=== PATIENT | female | born 1960 | race Caucasian/White ===

== ENCOUNTER 2016-11-02 11:40 | Emergency (ER) | payer BC ==
--- NOTE | 2016-11-02 12:02 | ER Document Report ---
ED Medical Screen (RME) - General Chief Complaint: Rib Pain Stated Complaint: LEFT RIB, SIDE AND BACK PAIN Time Seen by Provider: 11/02/16 12:00 Mode of Arrival: Ambulatory Information source: Patient TRAVEL OUTSIDE OF THE [place] IN LAST 30 DAYS: No - HPI Patient complains to provider of: L rib pain Onset: Other - pt. with h/o L rib fx earlier this year with recurrent pain in same area. Denies new trauma. Continues to smoke - Related Data Allergies/Adverse Reactions: cyclobenzaprine HCl [From Flexeril] Allergy (Unknown, Verified 11/02/16 11:59) Past Medical History - Social History Frequency of alcohol use: daily Drug Abuse: None Pulmonary Medical History: 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 Renal/ Medical History: Denies: Hx Peritoneal Dialysis GI Medical History: Reports: Hx Diverticulitis, Hx Irritable Bowel Traumatic Medical History: Reports: Hx Fractures - With Past Surgical History: Reports: Hx Appendectomy, Hx Breast Surgery - augmentation, Hx Section - x1, Hx Gynecologic Surgery - ovarian cyst, Hx Hysterectomy, Hx Nose Surgery, Hx Orthopedic Surgery - back, left knee, - Immunizations Hx Diphtheria, Pertussis, Tetanus Vaccination: - unknown Physical Exam - Vital signs Vitals: Temp Pulse Resp BP Pulse Ox 98.4 F 97 18 166/81 H 96 11/02/16 11:45 11/02/16 11:45 11/02/16 11:45 11/02/16 11:45 11/02/16 11:45 Course - Vital Signs Vital signs: Temp Pulse Resp BP Pulse Ox 98.4 F 97 18 166/81 H 96 11/02/16 11:45 11/02/16 11:45 11/02/16 11:45 11/02/16 11:45 11/02/16 11:45
--- NOTE | 2016-11-02 12:25 | RADIOLOGY REPORT (SQ) ---
EXAM DESCRIPTION: RIBS LEFT W/PA CHEST COMPLETED DATE/TIME: 11/02/2016 12:17 pm REASON FOR STUDY: L rib pain COMPARISON: None. TECHNIQUE: Frontal view of the chest and additional views of the left ribs acquired. NUMBER OF VIEWS: Three view. LIMITATIONS: None. FINDINGS: FRONTAL CXR: There is minimal linear atelectasis or scarring in the lung bases. No pneumo thorax or pleural effusion. Small nodular density overlying the left base is consistent with nipple shadow. RIBS: No displaced rib fractures. No lytic or blastic bony lesions. OTHER: No other significant finding. IMPRESSION: NO PNEUMOTHORAX. NO DISPLACED RIB FRACTURES. COMMENT: SITE OF TRAUMA/COMPLAINT MARKED/STAMP COMPLETED: NO. TECHNICAL DOCUMENTATION: JOB ID: [id number] [employer]- All Rights Reserved
[2016-11-02 12:32] LABS: ABSOLUTE BASOPHILS # (AUTO) 0.1 10^3/uL (0.0-0.2); ABSOLUTE EOSINOPHILS # (AUTO) 0.1 10^3/uL (0.0-0.6); ABSOLUTE LYMPHOCYTES (AUTO) 3.3 10^3/uL (0.5-4.7); ABSOLUTE MONOCYTES (AUTO) 0.8 10^3/uL (0.1-1.4); ABSOLUTE NEUT (AUTO) 9.4 10^3/uL (1.7-8.2); BASOPHILS % (AUTO) 0.9 % (0-2); HEMATOCRIT 45.5 % (36.0-47.0); HEMOGLOBIN 14.7 g/dL (12.0-15.5); HGB HCT DIFFERENCE -1.4; LYMPHOCYTES % (AUTO) 23.9 % (13-45); MEAN CORPUSCULAR HGB CONC 32.4 g/dL (32.0-36.0); MEAN CORPUSCULAR VOLUME 90 fl (80-97); MONOCYTES % (AUTO) 5.5 % (3-13); RED BLOOD COUNT 5.07 10^6/uL (3.72-5.28); RED CELL DISTRIBUTION WIDTH 13.7 % (11.5-14.0); SEGMENTED NEUTROPHILS % (AUTO) 68.7 % (42-78); WHITE BLOOD COUNT 13.7 10^3/uL (4.0-10.5)
[2016-11-02 12:49] LABS: ALANINE AMINOTRANSFERASE 24 U/L (9-52); ALBUMIN 4.6 g/dL (3.5-5.0); ALKALINE PHOSPHATASE 109 U/L (38-126); ANION GAP 11 (5-19); ASPARTATE AMINO TRANSFERASE 22 U/L (14-36); BILIRUBIN,DIRECT 0.3 mg/dL (0.0-0.4); BILIRUBIN,TOTAL 0.5 mg/dL (0.2-1.3); BLOOD UREA NITROGEN 11 mg/dL (7-20); CALCIUM 9.8 mg/dL (8.4-10.2); CARBON DIOXIDE 25 mmol/L (22-30); CHLORIDE 106 mmol/L (98-107); CREATINE KINASE 113 U/L (30-135); CREATININE RESULT 0.61 mg/dL (0.52-1.25); GLUCOSE 96 mg/dL (75-110); POTASSIUM 4.7 mmol/L (3.6-5.0); SODIUM 142.4 mmol/L (137-145)
[2016-11-02 13:01] LABS: CREATINE KINASE MB 0.72 ng/mL (<4.55); TROPONIN I < 0.012 ng/mL
[2016-11-02] MEDS ORDERED: LIDOCAINE 5% (700 MG) TRANSDERMAL ADH..PATCH TP ONE (13:45)
--- NOTE | 2016-11-02 13:46 | ER Document Report ---
ED General - General Chief Complaint: Rib Pain Stated Complaint: LEFT RIB, SIDE AND BACK PAIN Time Seen by Provider: 11/02/16 12:00 Mode of Arrival: Ambulatory TRAVEL OUTSIDE OF THE [place] IN LAST 30 DAYS: No - HPI Patient complains to provider of: Left lateral chest wall pain Notes: Patient coming in for evaluation of lateral chest wall pain ongoing for the last 2 weeks. Patient denies any trauma denies any fever chills nausea vomiting patient has pinpoint pain patient states pain is worse with movement. Denies any cardiac history denies any history of blood clots. Patient is resting comfortably upon my evaluation eating peanut butter and crackers. - Related Data Allergies/Adverse Reactions: cyclobenzaprine HCl [From Flexeril] Allergy (Unknown, Verified 11/02/16 11:59) Past Medical History - General Information source: Patient - Social History Smoking Status: Current Every Day Smoker Frequency of alcohol use: daily Drug Abuse: None Family History: Reviewed & Not Pertinent Patient has suicidal ideation: No Patient has homicidal ideation: No Pulmonary Medical History: 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 Renal/ Medical History: Denies: Hx Peritoneal Dialysis GI Medical History: Reports: Hx Diverticulitis, Hx Irritable Bowel Traumatic Medical History: Reports: Hx Fractures - With Past Surgical History: Reports: Hx Appendectomy, Hx Breast Surgery - augmentation, Hx Section - x1, Hx Gynecologic Surgery - ovarian cyst, Hx Hysterectomy, Hx Nose Surgery, Hx Orthopedic Surgery - back, left knee, - Immunizations Hx Diphtheria, Pertussis, Tetanus Vaccination: - unknown Review of Systems - Review of Systems Constitutional: No symptoms reported EENT: No symptoms reported Cardiovascular: Chest pain - Left lateral chest wall Respiratory: No symptoms reported Gastrointestinal: No symptoms reported Genitourinary: No symptoms reported Female Genitourinary: No symptoms reported Musculoskeletal: No symptoms reported Skin: No symptoms reported Hematologic/Lymphatic: No symptoms reported Neurological/Psychological: No symptoms reported Physical Exam - Vital signs Vitals: Temp Pulse Resp BP Pulse Ox 98.4 F 97 18 166/81 H 96 11/02/16 11:45 11/02/16 11:45 11/02/16 11:45 11/02/16 11:45 11/02/16 11:45 Interpretation: Normal - General General appearance: Appears well, Alert - HEENT Head: Normocephalic, Atraumatic Eyes: Normal Pupils: PERRL - Respiratory Respiratory status: No respiratory distress Chest status: Tender - Left lateral chest wall pain reproducible to palpation Breath sounds: Normal Chest palpation: Normal - Cardiovascular Rhythm: Regular Heart sounds: Normal auscultation Murmur: No - Abdominal Inspection: Normal Distension: No distension Bowel sounds: Normal Tenderness: Nontender Organomegaly: No organomegaly - Back Back: Normal, Nontender - Extremities General upper extremity: Normal inspection, Nontender, Normal color, Normal ROM , Normal temperature General lower extremity: Normal inspection, Nontender, Normal color, Normal ROM , Normal temperature, Normal weight bearing. No: Mauro's sign - Neurological Neuro grossly intact: Yes Cognition: Normal Orientation: AAOx4 [place] Coma Scale Eye Opening: Spontaneous Jacqui Coma Scale Verbal: Oriented [place] Coma Scale Motor: Obeys Commands [place] Coma Scale Total: 15 Speech: Normal Motor strength normal: LUE, RUE, LLE, RLE Sensory: Normal - Psychological Associated symptoms: Normal affect, Normal mood - Skin Skin Temperature: Warm Skin Moisture: Dry Skin Color: Normal Course - Re-evaluation Re-evalutation: 11/02/16 14:55 The patient has atypical chest pain as the patient's chest pain is not suggestive of pulmonary embolus, cardiac ischemia, aortic dissection, or other serious etiology. Given the extremely low risk of these diagnoses further testing and evaluation for these possibilities does not appear to be indicated at this time. The patient has been instructed to return if the symptoms worsen or change in any way. - Vital Signs Vital signs: Temp Pulse Resp BP Pulse Ox 98.0 F 92 17 148/82 H 98 11/02/16 13:57 11/02/16 13:57 11/02/16 13:57 11/02/16 13:57 11/02/16 13:57 - Laboratory Result Diagrams: 11/02/16 12:00 11/02/16 12:00 Laboratory results interpreted by me: 11/02/16 12:00 WBC 13.7 H Absolute Neutrophils 9.4 H Discharge - Discharge Clinical Impression: Chest wall pain Condition: Good Disposition: HOME, SELF-CARE Instructions: Chest Wall Pain ([facility]), Anti-Inflammatory Medication ([facility]) Additional Instructions: Follow-up with your primary care physician. Return to the ER if symptoms worsen. Take medication as prescribed Prescriptions: Ibuprofen [Motrin 600 Mg Tablet] 600 mg PO TID #30 tablet Referrals: OLGA JACOBSON MD [Primary Care Provider] - Follow up as needed
[2016-11-02 14:09] VITALS: BP 148/82
--- NOTE | 2016-11-02 20:16 | EKG REPORT ---
SEVERITY:- NORMAL ECG - SINUS RHYTHM : Confirmed by: De Varma MD 02-Nov-2016 20:16:05
== END 2016-11-02 14:09 | disposition home or self-care (01) ==
LOC: ER 11:40
DX: R07.81 Pleurodynia (principal); M54.9 Dorsalgia, unspecified; F17.200 Nicotine dependence, unspecified, uncomplicated; J44.9 Chronic obstructive pulmonary disease, unspecified; Z90.710 Acquired absence of both cervix and uterus
CPT/HCPCS: 36415; 80053; 82550; 82553; 84484; 85025; 93005; 93010; 99284

== ENCOUNTER 2016-11-26 02:11 | Emergency (ER) | payer BC ==
--- NOTE | 2016-11-26 03:28 | RADIOLOGY REPORT (SQ) ---
EXAM DESCRIPTION: FOOT LEFT COMPLETE COMPLETED DATE/TIME: 11/26/2016 3:10 am REASON FOR STUDY: Pain s/p injury COMPARISON: None. NUMBER OF VIEWS: Three views. TECHNIQUE: AP, lateral and oblique radiographic images acquired of the left foot. LIMITATIONS: None. FINDINGS: MINERALIZATION: Normal. BONES: No acute fracture or dislocation. No worrisome bone lesions. JOINTS: No effusions. SOFT TISSUES: No soft tissue swelling. No foreign body. OTHER: No other significant finding. IMPRESSION: NEGATIVE STUDY OF THE LEFT FOOT. NO RADIOGRAPHIC EVIDENCE OF ACUTE INJURY. TECHNICAL DOCUMENTATION: JOB ID: [id number] [employer]- All Rights Reserved
[2016-11-26] MEDS ORDERED: DOXYCYCLINE HYCLATE 100 MG TABLET PO ONE (03:58)
--- NOTE | 2016-11-26 04:04 | ER Document Report ---
HPI - HPI Patient complains to provider of: Right foot pain, right foot injury Pain Level: 4 Context: Patient is a 56-year-old female who comes emergency department for chief complaint of right foot pain and swelling. She states she dropped a welcome shell on her foot earlier today when claiming. She states that when she woke up she noticed that the area was swollen, tender, and appeared slightly reddish , she states she became concerned that was infected or there was a piece of shower in her foot. She also reports scratches on her right fifth finger and the left anterior leg. She is up-to-date on her tetanus within 5 years. She denies diabetes. - REPRODUCTIVE Reproductive: DENIES: : - DERM Skin Color: Normal, [place] Past Medical History - General Information source: Patient - Social History Smoking Status: Current Every Day Smoker Frequency of alcohol use: Social Drug Abuse: None Lives with: Family Family History: Reviewed & Not Pertinent Pulmonary Medical History: 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 Renal/ Medical History: Denies: Hx Peritoneal Dialysis GI Medical History: Reports: Hx Diverticulitis, Hx Irritable Bowel Traumatic Medical History: Reports: Hx Fractures - With Past Surgical History: Reports: Hx Appendectomy, Hx Breast Surgery - augmentation, Hx Section - x1, Hx Gynecologic Surgery - ovarian cyst, Hx Hysterectomy, Hx Nose Surgery, Hx Orthopedic Surgery - back, left knee, - Immunizations Immunizations up to date: Yes Hx Diphtheria, Pertussis, Tetanus Vaccination: Yes - unknown Vertical Provider Document - CONSTITUTIONAL General Appearance: WD/WN, No Apparent Distress - INFECTION CONTROL TRAVEL OUTSIDE OF THE [place] IN LAST 30 DAYS: No - HEENT HEENT: Atraumatic, Normocephalic - NECK Neck: Normal Inspection - RESPIRATORY Respiratory: Breath Sounds Normal, No Respiratory Distress - CARDIOVASCULAR Cardiovascular: Regular Rate, Regular Rhythm - GI/ABDOMEN Gastrointestinal: Abdomen Soft, Abdomen Non-Tender - BACK Back: Normal Inspection - MUSCULOSKELETAL/EXTREMETIES Musculoskeletal/Extremeties: Tender - Right foot with a small amount of soft tissue swelling around a small scabbed area over the dorsal medial aspect of the foot. There is minimal erythema and there is some tenderness over the general area and along the medial side of the foot. Normal capillary refill and sensation, normal ankle exam. Normal examination otherwise. Small scratches noted over the palmar aspect of the right fifth digit and over the left anterior distal tibial area Course - Re-evaluation Re-evalutation: There is some mild erythema with the minimal soft tissue swelling around the area where she dropped the shell. X-ray with no foreign body or fracture. Patient also has multiple scratches. Discussed with patient. She is requesting the cautious approach with antibiotic coverage against potential bacterial infection. Covering with doxycycline. Discussed recommendations, return precautions. Patient instructed to elevate her foot, take ibuprofen, take doxycycline, and return for any concerning symptoms. Patient states understanding and agreement Discharge - Discharge Clinical Impression: Foot swelling Foot injury Qualifiers: Encounter type: initial encounter Laterality: right Qualified Code(s): S99.921A - Unspecified injury of right foot, initial encounter Condition: Stable Disposition: HOME, SELF-CARE Additional Instructions: The examination is consistent with soft tissue swelling from the injury. Questionable early infection. No foreign body or fracture is seen on x-ray. Elevate your foot, apply clean dressing over the scratches with topical antibiotic. I recommend probiotic while you are taking doxycycline. Follow-up with primary care. Return to the emergency department for any concerning or worsening symptoms including developing redness, swelling, discolored discharge, fever, etc. Prescriptions: Doxycycline Hyclate 100 mg PO BID #10 capsule Forms: Smoking Cessation Education
[2016-11-26 04:26] VITALS: BP 138/70
== END 2016-11-26 04:10 | disposition home or self-care (01) ==
LOC: ER 02:11
DX: S99.921A Unspecified injury of right foot, initial encounter (principal); M79.89 Other specified soft tissue disorders; M79.671 Pain in right foot; F17.200 Nicotine dependence, unspecified, uncomplicated; X58.XXXA Exposure to other specified factors, initial encounter
CPT/HCPCS: 99283

== ENCOUNTER 2017-03-25 11:39 | Emergency (ER) | payer BC ==
[2017-03-25] MEDS ORDERED: HYDROCODONE/ACETAMINOPHEN 5-325 MG TABLET PO ONE (13:12)
--- NOTE | 2017-03-25 13:54 | RADIOLOGY REPORT (SQ) ---
EXAM DESCRIPTION: CT ABD/PELVIS NO ORAL OR IV COMPLETED DATE/TIME: 03/25/2017 1:44 pm REASON FOR STUDY: pain COMPARISON: None. TECHNIQUE: CT scan of the abdomen and pelvis performed without intravenous or oral contrast. Images reviewed with lung, soft tissue, and bone windows. Reconstructed coronal and sagittal MPR images revi ewed. All images stored on PACS. All CT scanners at this facility use dose modulation, iterative reconstruction, and/or weight based d osing when appropriate to reduce radiation dose to as low as reasonably achievable (ALARA). [facility]: Dose Right [facility]: CareDose [facility]: Dose Right [facility]: Teradose 4D [facility]: RadioRx RADIATION DOSE: mGy. LIMITATIONS: Artifact from lower lumbar fusion. FINDINGS: LOWER CHEST: No significant findings. No nodules or infiltrates. NON-CONTRASTED LIVER, SPLEEN, ADRENALS: Evaluation limited by lack of IV contrast. No identified sign ificant masses. PANCREAS: No masses. No peripancreatic inflammatory changes. GALLBLADDER: No identified stones by CT criteria. No inflammatory changes to suggest cholecystitis. RIGHT KIDNEY AND URETER: No suspicious masses. Assessment limited by lack of IV contrast. No signif icant calcifications. No hydronephrosis or hydroureter. LEFT KIDNEY AND URETER: No suspicious masses. Assessment limited by lack of IV contrast. No signifi cant calcifications. No hydronephrosis or hydroureter. AORTA AND RETROPERITONEUM: No aneurysm. No retroperitoneal masses or adenopathy. BOWEL AND PERITONEAL CAVITY: Diverticulosis sigmoid colon. No obvious masses or inflammatory changes . No free fluid. APPENDIX: Surgically absent. PELVIS, BLADDER, AND ABDOMINAL WALL:No abnormal masses. No free fluid. Bladder normal. BONES: No acute findings. OTHER: No other significant finding. IMPRESSION: No acute abnormality in the abdomen or pelvis. COMMENT: Quality ID # [id number]: Final reports with documentation of one or more dose reduction techniques (e.g., Automated exposure control, adjustment of the mA and/or kV according to patient size, use of iterative reconstruction technique) TECHNICAL DOCUMENTATION: JOB ID: [id number] [employer]- All Rights Reserved
[2017-03-25 13:56] LABS: ABSOLUTE BASOPHILS # (AUTO) 0.1 10^3/uL (0.0-0.2); ABSOLUTE EOSINOPHILS # (AUTO) 0.2 10^3/uL (0.0-0.6); ABSOLUTE LYMPHOCYTES (AUTO) 2.9 10^3/uL (0.5-4.7); ABSOLUTE MONOCYTES (AUTO) 0.8 10^3/uL (0.1-1.4); ABSOLUTE NEUT (AUTO) 7.5 10^3/uL (1.7-8.2); BASOPHILS % (AUTO) 0.9 % (0-2); EOSINOPHILS % (AUTO) 1.4 % (0-6); HEMATOCRIT 43.2 % (36.0-47.0); HGB HCT DIFFERENCE 1.8; LYMPHOCYTES % (AUTO) 25.6 % (13-45); MEAN CORPUSCULAR HEMOGLOBIN 31.3 pg (27.0-33.4); MEAN CORPUSCULAR HGB CONC 34.7 g/dL (32.0-36.0); MEAN CORPUSCULAR VOLUME 90 fl (80-97); MONOCYTES % (AUTO) 6.6 % (3-13); RED CELL DISTRIBUTION WIDTH 13.6 % (11.5-14.0); SEGMENTED NEUTROPHILS % (AUTO) 65.5 % (42-78); WHITE BLOOD COUNT 11.5 10^3/uL (4.0-10.5)
[2017-03-25 14:11] LABS: ALANINE AMINOTRANSFERASE 27 U/L (9-52); ALBUMIN 4.5 g/dL (3.5-5.0); ALKALINE PHOSPHATASE 99 U/L (38-126); ANION GAP 12 (5-19); ASPARTATE AMINO TRANSFERASE 24 U/L (14-36); BILIRUBIN,DIRECT 0.3 mg/dL (0.0-0.4); BILIRUBIN,TOTAL 0.4 mg/dL (0.2-1.3); BLOOD UREA NITROGEN 10 mg/dL (7-20); CARBON DIOXIDE 27 mmol/L (22-30); CHLORIDE 104 mmol/L (98-107); CREATININE RESULT 0.59 mg/dL (0.52-1.25); GLUCOSE 83 mg/dL (75-110); POTASSIUM 4.5 mmol/L (3.6-5.0); SODIUM 142.6 mmol/L (137-145); TOTAL PROTEIN 7.3 g/dL (6.3-8.2)
[2017-03-25 14:21] LABS: APPEARANCE,URINE CLEAR; BILIRUBIN,URINE NEGATIVE (NEGATIVE); GLUCOSE, URINE NEGATIVE (NEGATIVE); KETONES,URINE NEGATIVE (NEGATIVE); LEUKOCYTE ESTERASE,URINE NEGATIVE (NEGATIVE); NITRITE,URINE NEGATIVE (NEGATIVE); PROTEIN,URINE NEGATIVE (NEGATIVE); URINE SPECIFIC GRAVITY 1.005; UROBILINOGEN,URINE NEGATIVE mg/dL (<2.0)
[2017-03-25 14:26] LABS: BACTERIA,URINE TRACE /HPF; RBC,URINE 0-1 /HPF
[2017-03-25 15:11] VITALS: BP 132/64
--- NOTE | 2017-03-25 15:11 | ER Document Report ---
ED General - General Chief Complaint: Abdominal Pain Stated Complaint: STOMACH PAIN Time Seen by Provider: 03/25/17 13:11 Mode of Arrival: Ambulatory Information source: Patient Notes: Patient states that she has bilateral lower quadrant abdominal pain. Is intermittent. It is worse after urination and better with rest. It does not radiate. It is been present for about 1 month intermittently. It is moderate in intensity. No vomiting or diarrhea. No rashes. No trauma. No fevers. TRAVEL OUTSIDE OF THE [place] IN LAST 30 DAYS: No - Related Data Allergies/Adverse Reactions: cyclobenzaprine HCl [From Flexeril] Allergy (Unknown, Verified 03/25/17 11:39) Home Medications: Current Home Medications Alendronate Sodium [Fosamax] 70 mg PO ASDIR 03/25/17 [History] Ergocalciferol (Vitamin D2) [Vitamin D2] 50,000 unit PO ASDIR 03/25/17 [History] Valacyclovir HCl [Valacyclovir] 1 tab PO DAILY 03/25/17 [History] Past Medical History - General Information source: Patient - Social History Smoking Status: Current Every Day Smoker Frequency of alcohol use: Heavy Drug Abuse: None Family History: Reviewed & Not Pertinent Patient has suicidal ideation: No Patient has homicidal ideation: No Pulmonary Medical History: 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 Renal/ Medical History: Denies: Hx Peritoneal Dialysis GI Medical History: Reports: Hx Diverticulitis, Hx Irritable Bowel Traumatic Medical History: Reports: Hx Fractures - With Past Surgical History: Reports: Hx Appendectomy, Hx Breast Surgery - augmentation, Hx Section - x1, Hx Gynecologic Surgery - ovarian cyst, Hx Hysterectomy, Hx Nose Surgery, Hx Orthopedic Surgery - back, left knee, - Immunizations Immunizations up to date: Yes Hx Diphtheria, Pertussis, Tetanus Vaccination: Yes - unknown Review of Systems - Review of Systems Constitutional: denies: Chills, Fever Cardiovascular: denies: Chest pain, Palpitations Respiratory: denies: Cough, Short of breath Gastrointestinal: Abdominal pain -: Yes All other systems reviewed and negative Physical Exam - Vital signs Vitals: Temp Pulse Resp BP Pulse Ox 97.9 F 85 18 148/81 H 96 03/25/17 11:45 03/25/17 11:45 03/25/17 11:45 03/25/17 11:45 03/25/17 11:45 Interpretation: Hypertensive - General General appearance: Appears well, Alert - HEENT Head: Normocephalic, Atraumatic Eyes: Normal Pupils: PERRL - Respiratory Respiratory status: No respiratory distress Chest status: Nontender Breath sounds: Normal Chest palpation: Normal - Cardiovascular Rhythm: Regular Heart sounds: Normal auscultation Murmur: No - Abdominal Inspection: Normal Distension: No distension Bowel sounds: Normal Tenderness: Tender. No: Guarding, Rebound - Mild diffuse bilateral lower quadrant pain to palpation Organomegaly: No organomegaly - Back Back: Normal, Nontender - Extremities General upper extremity: Normal inspection, Nontender, Normal color, Normal ROM , Normal temperature General lower extremity: Normal inspection, Nontender, Normal color, Normal ROM , Normal temperature, Normal weight bearing. No: Mauro's sign - Neurological Neuro grossly intact: Yes Cognition: Normal Orientation: AAOx4 Jacqui Coma Scale Eye Opening: Spontaneous Jacqui Coma Scale Verbal: Oriented Jacqui Coma Scale Motor: Obeys Commands Jacqui Coma Scale Total: 15 Speech: Normal Motor strength normal: LUE, RUE, LLE, RLE Sensory: Normal - Psychological Associated symptoms: Normal affect, Normal mood - Skin Skin Temperature: Warm Skin Moisture: Dry Skin Color: Normal Course - Vital Signs Vital signs: Temp Pulse Resp BP Pulse Ox 97.9 F 85 18 148/81 H 96 03/25/17 11:45 03/25/17 11:45 03/25/17 12:55 03/25/17 11:45 03/25/17 11:45 - Laboratory Result Diagrams: 03/25/17 13:25 03/25/17 13:25 Laboratory results interpreted by me: 03/25/17 03/25/17 13:25 13:25 WBC 11.5 H Urine Blood MODERATE H - Diagnostic Test Radiology reviewed: Image reviewed, Reports reviewed - CT the abdomen shows no evidence of acute pathology. Discharge - Discharge Clinical Impression: Abdominal pain, acute, bilateral lower quadrant Condition: Stable Disposition: HOME, SELF-CARE Instructions: Abdominal Pain ([facility]) Additional Instructions: Your blood pressure is elevated please have this rechecked within 1 week by your doctor. Prescriptions: Tramadol HCl [Ultram 50 mg Tablet] 50 mg PO Q6 #12 tab Forms: Return to Work Referrals: LAURA CAVANAUGH MD [COMMUNITY BASED STAFF] - Follow up as needed
== END 2017-03-25 15:11 | disposition home or self-care (01) ==
LOC: ER 11:39
DX: R10.30 Lower abdominal pain, unspecified (principal); F17.200 Nicotine dependence, unspecified, uncomplicated; J44.9 Chronic obstructive pulmonary disease, unspecified; Z90.710 Acquired absence of both cervix and uterus
CPT/HCPCS: 36415; 74176; 80053; 81001; 85025; 99284

== ENCOUNTER 2017-11-04 11:35 | Emergency (ER) | payer BC ==
[2017-11-04] MEDS ORDERED: ONDANSETRON 4 MG TAB.RAPDIS PO ONE (12:00)
[2017-11-04] MEDS ORDERED: ACETAMINOPHEN 325 MG TABLET PO ONE (12:00)
--- NOTE | 2017-11-04 12:03 | ER Document Report ---
ED Medical Screen (RME) - General Chief Complaint: Abdominal Pain Stated Complaint: STOMACH PAIN Time Seen by Provider: 11/04/17 11:57 Notes: RAPID MEDICAL EVALUATION DISCLOSURE I have seen this patient as part of a Rapid Medical Evaluation and, if applicable, placed any initially appropriate orders. The patient will be seen and fully evaluated, including a full history and physical exam, by a provider ( in Main ED or Fast Track) when a room becomes available. 57-year-old female PMH diverticulitis here with complaints of abdominal pain and nausea ongoing for the past 1 week but progressively worsening since then. Has started to have diarrhea in the past few days. She has tried Mylanta with not much relief. Certain foods make the pain worse. She states this feels like her previous episodes of diverticulitis. EXAM Mild to moderate epigastric and left upper/lower quadrant TTP No peritoneal signs TRAVEL OUTSIDE OF THE [place] IN LAST 30 DAYS: No - Related Data Allergies/Adverse Reactions: cyclobenzaprine HCl [From Flexeril] Allergy (Unknown, Verified 11/04/17 11:36) Sulfa (Sulfonamide Antibiotics) Allergy (Verified 11/04/17 11:59) Past Medical History - Social History Chew tobacco use (# tins/day): No Frequency of alcohol use: Social Drug Abuse: None Pulmonary Medical History: 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 Renal/ Medical History: Denies: Hx Peritoneal Dialysis GI Medical History: Reports: Hx Diverticulitis, Hx Irritable Bowel Traumatic Medical History: Reports: Hx Fractures - With Past Surgical History: Reports: Hx Appendectomy, Hx Breast Surgery - augmentation, Hx Section - x1, Hx Gynecologic Surgery - ovarian cyst, Hx Hysterectomy, Hx Nose Surgery, Hx Orthopedic Surgery - back, left knee, - Immunizations Immunizations up to date: Yes Hx Diphtheria, Pertussis, Tetanus Vaccination: Yes - unknown Physical Exam - Vital signs Vitals: Temp Pulse Resp BP Pulse Ox 97.9 F 70 16 133/63 H 97 11/04/17 11:42 11/04/17 11:42 11/04/17 11:42 11/04/17 11:42 11/04/17 11:42 Course - Vital Signs Vital signs: Temp Pulse Resp BP Pulse Ox 97.9 F 70 16 133/63 H 97 11/04/17 11:42 11/04/17 11:42 11/04/17 11:42 11/04/17 11:42 11/04/17 11:42
[2017-11-04 12:28] LABS: ABSOLUTE BASOPHILS # (AUTO) 0.1 10^3/uL (0.0-0.2); ABSOLUTE EOSINOPHILS # (AUTO) 0.1 10^3/uL (0.0-0.6); ABSOLUTE LYMPHOCYTES (AUTO) 2.2 10^3/uL (0.5-4.7); ABSOLUTE MONOCYTES (AUTO) 0.9 10^3/uL (0.1-1.4); ABSOLUTE NEUT (AUTO) 9.1 10^3/uL (1.7-8.2); BASOPHILS % (AUTO) 0.9 % (0-2); EOSINOPHILS % (AUTO) 0.9 % (0-6); HEMATOCRIT 45.5 % (36.0-47.0); HEMOGLOBIN 15.6 g/dL (12.0-15.5); LYMPHOCYTES % (AUTO) 18.1 % (13-45); MEAN CORPUSCULAR HEMOGLOBIN 30.6 pg (27.0-33.4); MEAN CORPUSCULAR HGB CONC 34.3 g/dL (32.0-36.0); MEAN CORPUSCULAR VOLUME 89 fl (80-97); PLATELET COUNT 279 10^3/uL (150-450); SEGMENTED NEUTROPHILS % (AUTO) 73.1 % (42-78); TOTAL CELLS COUNTED % (AUTO) 100 %; WHITE BLOOD COUNT 12.4 10^3/uL (4.0-10.5)
[2017-11-04 12:37] LABS: APPEARANCE,URINE SLIGHTLY-CLOUDY; BILIRUBIN,URINE NEGATIVE (NEGATIVE); COLOR,URINE YELLOW; GLUCOSE, URINE NEGATIVE (NEGATIVE); KETONES,URINE NEGATIVE (NEGATIVE); LEUKOCYTE ESTERASE,URINE NEGATIVE (NEGATIVE); NITRITE,URINE NEGATIVE (NEGATIVE); PROTEIN,URINE NEGATIVE (NEGATIVE); URINE SPECIFIC GRAVITY 1.015; UROBILINOGEN,URINE NEGATIVE mg/dL (<2.0)
[2017-11-04 12:52] LABS: ALANINE AMINOTRANSFERASE 23 U/L (9-52); ALBUMIN 4.7 g/dL (3.5-5.0); ALKALINE PHOSPHATASE 98 U/L (38-126); ANION GAP 11 (5-19); ASPARTATE AMINO TRANSFERASE 22 U/L (14-36); BILIRUBIN,DIRECT 0.2 mg/dL (0.0-0.4); BILIRUBIN,TOTAL 0.6 mg/dL (0.2-1.3); BLOOD UREA NITROGEN 9 mg/dL (7-20); CALCIUM 9.8 mg/dL (8.4-10.2); CARBON DIOXIDE 29 mmol/L (22-30); CHLORIDE 104 mmol/L (98-107); GLUCOSE 97 mg/dL (75-110); LIPASE 96.4 U/L (23-300); POTASSIUM 4.4 mmol/L (3.6-5.0); SODIUM 144.4 mmol/L (137-145); TOTAL PROTEIN 8.1 g/dL (6.3-8.2)
--- NOTE | 2017-11-04 13:16 | ER Document Report ---
ED General - General Chief Complaint: Abdominal Pain Stated Complaint: STOMACH PAIN Time Seen by Provider: 11/04/17 11:57 Mode of Arrival: Ambulatory Information source: Patient Notes: 57-year-old female history of diverticulosis presents with complaints of left lower quadrant left upper quadrant abdominal pain over the past week which has worsened. Patient admits to intermittent episodes of bright red rectal bleeding. Patient denies any fevers or chills denies any vomiting admits to nausea. Patient notes this is similar to her previous diverticulitis. Patient does have a history of IBS as well patient does admit to a history of hemorrhoids TRAVEL OUTSIDE OF THE [place] IN LAST 30 DAYS: No - HPI Onset: Last week Onset/Duration: Waxing and waning Quality of pain: Cramping Severity: Mild Pain Level: 1 Associated symptoms: Other Exacerbated by: Denies Relieved by: Denies Similar symptoms previously: Yes Recently seen / treated by doctor: No - Related Data Allergies/Adverse Reactions: cyclobenzaprine HCl [From Flexeril] Allergy (Unknown, Verified 11/04/17 11:36) Sulfa (Sulfonamide Antibiotics) Allergy (Verified 11/04/17 11:59) Past Medical History - Social History Smoking Status: Current Every Day Smoker Cigarette use (# per day): Yes Chew tobacco use (# tins/day): No Smoking Education Provided: No Frequency of alcohol use: Social Drug Abuse: None Family History: Reviewed & Not Pertinent Patient has suicidal ideation: No Patient has homicidal ideation: No Pulmonary Medical History: 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 Renal/ Medical History: Denies: Hx Peritoneal Dialysis GI Medical History: Reports: Hx Diverticulitis, Hx Irritable Bowel Traumatic Medical History: Reports: Hx Fractures - With Past Surgical History: Reports: Hx Appendectomy, Hx Breast Surgery - augmentation, Hx Section - x1, Hx Gynecologic Surgery - ovarian cyst, Hx Hysterectomy, Hx Nose Surgery, Hx Orthopedic Surgery - back, left knee, - Immunizations Immunizations up to date: Yes Hx Diphtheria, Pertussis, Tetanus Vaccination: Yes - unknown Review of Systems - Review of Systems Notes: REVIEW OF SYSTEMS: CONSTITUTIONAL : Denies fever, chills, or sweats. Denies recent illness. EENT: Denies eye, ear, throat, or mouth pain or symptoms. Denies nasal or sinus congestion or discharge. Denies throat, tongue, or mouth swelling or difficulty swallowing. CARDIOVASCULAR: Denies chest pain. Denies palpitations or racing or irregular heart beat. Denies ankle edema. RESPIRATORY: Denies cough, cold, or chest congestion. Denies shortness of breath, difficulty breathing, or wheezing. GASTROINTESTINAL: Admits to abdominal pain left lower quadrant admits to rectal bleeding GENITOURINARY: Denies difficulty urinating, painful urination, burning, frequency, blood in urine, or discharge. FEMALE GENITOURINARY: Denies vaginal bleeding, heavy or abnormal periods, irregular periods. Denies vaginal discharge or odor. MUSCULOSKELETAL: Denies back or neck pain or stiffness. Denies joint pain or swelling. SKIN: Denies rash, lesions or sores. HEMATOLOGIC : Denies easy bruising or bleeding. LYMPHATIC: Denies swollen, enlarged glands. NEUROLOGICAL: Denies confusion or altered mental status. Denies passing out or loss of consciousness. Denies dizziness or lightheadedness. Denies headache. Denies weakness or paralysis or loss of use of either side. Denies problems with gait or speech. Denies sensory loss, numbness, or tingling. Denies seizures. PSYCHIATRIC: Denies anxiety or stress. Denies depression, suicidal ideation, or homicidal ideation. ALL OTHER SYSTEMS REVIEWED AND NEGATIVE. PHYSICAL EXAMINATION: GENERAL: Well-appearing, well-nourished and in no acute distress. HEAD: Atraumatic, normocephalic. EYES: Pupils equal round and reactive to light, extraocular movements intact, conjunctiva are normal. ENT: Nares patent, oropharynx clear without exudates. Moist mucous membranes. NECK: Normal range of motion, supple without lymphadenopathy LUNGS: Breath sounds clear to auscultation bilaterally and equal. No wheezes rales or rhonchi. HEART: Regular rate and rhythm without murmurs ABDOMEN: Soft, minimally tender in the left lower quadrant no rebound or guarding. No guarding, no rebound. No masses appreciated. Female : Rectal examination performed with corporate specialist in the room notes nonthrombosed hemorrhoid with bright red blood no rectal active bleeding noted Musculoskeletal: Normal range of motion, no pitting or edema. No cyanosis. NEUROLOGICAL: Cranial nerves grossly intact. Normal speech, normal gait. Normal sensory, motor exams PSYCH: Normal mood, normal affect. SKIN: Warm, Dry, normal turgor, no rashes or lesions noted. Dictation was performed using [email or web address] recognition software Physical Exam - Vital signs Vitals: Temp Pulse Resp BP Pulse Ox 97.9 F 70 16 133/63 H 97 11/04/17 11:42 11/04/17 11:42 11/04/17 11:42 11/04/17 11:42 11/04/17 11:42 Course - Re-evaluation Re-evalutation: 11/04/17 13:16 Patient's hemoglobin is stable mild white count elevation is noted, this is probably secondary to diverticulitis CT is pending but patient overall looks well is in no distress - Vital Signs Vital signs: Temp Pulse Resp BP Pulse Ox 97.9 F 70 16 133/63 H 97 11/04/17 11:42 11/04/17 11:42 11/04/17 11:42 11/04/17 11:42 11/04/17 11:42 - Laboratory Result Diagrams: 11/04/17 12:07 11/04/17 12:07 Laboratory results interpreted by me: 11/04/17 11/04/17 12:07 12:10 WBC 12.4 H Hgb 15.6 H Absolute Neutrophils 9.1 H Urine Blood MODERATE H Discharge - Discharge Clinical Impression: Abdominal pain Qualifiers: Abdominal location: left lower quadrant Qualified Code(s): R10.32 - Left lower quadrant pain Condition: Stable Disposition: HOME, SELF-CARE Instructions: Abdominal Pain ([facility]) Prescriptions: Ciprofloxacin HCl [Cipro 500 mg Tablet] 500 mg PO BID #20 tablet Metronidazole [Flagyl 500 mg Tablet] 500 mg PO Q8 #30 tablet Referrals: ADELA AMOS MD [Primary Care Provider] - Follow up as needed
--- NOTE | 2017-11-04 14:30 | RADIOLOGY REPORT (SQ) ---
EXAM DESCRIPTION: CT ABD/PELVIS NO ORAL OR IV COMPLETED DATE/TIME: 11/04/2017 12:50 pm REASON FOR STUDY: abd pain, diarrhea; eval divertic colitis etc COMPARISON: 03/25/2017 TECHNIQUE: CT scan of the abdomen and pelvis performed without intravenous or oral contrast. Images reviewed with lung, soft tissue, and bone windows. Reconstructed coronal and sagittal MPR images revi ewed. All images stored on PACS. All CT scanners at this facility use dose modulation, iterative reconstruction, and/or weight based d osing when appropriate to reduce radiation dose to as low as reasonably achievable (ALARA). [facility]: Dose Right [facility]: CareDose [facility]: Dose Right [facility]: Teradose 4D [facility]: Smart [employer] RADIATION DOSE: CT Rad equipment meets quality standard of care and radiation dose reduction techniq ues were employed. CTDIvol: 6.8 mGy. DLP: 345 mGy-cm.mGy. LIMITATIONS: None. FINDINGS: LOWER CHEST: Stable atelectasis or scar in the lower lobes. NON-CONTRASTED LIVER, SPLEEN, ADRENALS: Evaluation limited by lack of IV contrast. No identified sign ificant masses. PANCREAS: No masses. No peripancreatic inflammatory changes. GALLBLADDER: No identified stones by CT criteria. No inflammatory changes to suggest cholecystitis. RIGHT KIDNEY AND URETER: No suspicious masses. Assessment limited by lack of IV contrast. No signif icant calcifications. No hydronephrosis or hydroureter. LEFT KIDNEY AND URETER: No suspicious masses. Assessment limited by lack of IV contrast. No signifi cant calcifications. No hydronephrosis or hydroureter. AORTA AND RETROPERITONEUM: Mild atherosclerotic changes involving the abdominal aorta. No aneurysm. No retroperitoneal masses or adenopathy. BOWEL AND PERITONEAL CAVITY: Colonic diverticulae without evidence of diverticulitis. No obvious ma sses or inflammatory changes. No free fluid. APPENDIX: Prior appendectomy. PELVIS, BLADDER, AND ABDOMINAL WALL: Prior hysterectomy. No abnormal masses. No free fluid. Bladder normal. BONES: Hardware lumbar posterior fusion L5-S1 produces artifact limiting detail somewhat. OTHER: Bilateral breast implants, stable findings. IMPRESSION: 1 Colonic diverticulae without evidence of diverticulitis. 2. Additional stable findings as above. COMMENT: Quality ID # [id number]: Final reports with documentation of one or more dose reduction techniques (e.g., Automated exposure control, adjustment of the mA and/or kV according to patient size, use of iterative reconstruction technique) TECHNICAL DOCUMENTATION: JOB ID: [id number] [employer]- All Rights Reserved Reading location - IP/workstation name: [email or web address]
[2017-11-04 15:09] VITALS: BP 128/60
== END 2017-11-04 14:53 | disposition home or self-care (01) ==
LOC: ER 11:35
DX: R10.32 Left lower quadrant pain (principal); R10.12 Left upper quadrant pain; K64.9 Unspecified hemorrhoids; D72.829 Elevated white blood cell count, unspecified; F17.210 Nicotine dependence, cigarettes, uncomplicated; J43.9 Emphysema, unspecified; Z87.19 Personal history of other diseases of the digestive system; Z88.8 Allergy status to other drugs, medicaments and biological substances; Z88.2 Allergy status to sulfonamides; Z90.49 Acquired absence of other specified parts of digestive tract; Z90.710 Acquired absence of both cervix and uterus
CPT/HCPCS: 99284; 36415; 87040; 83690; 85025; 80053; 81001; 74176; S0119

== ENCOUNTER → 2018-02-18 | Outpatient (CLI) | payer BC ==
--- NOTE | 2018-02-18 13:45 | WOMENS IMAGING REPORT ---
EXAM DESCRIPTION: BILAT SCREENING MAMMO W/CAD COMPLETED DATE/TIME: 02/18/2018 1:24 pm REASON FOR STUDY: Z12.39 3D BILATERAL SCREENING MAMMOGRAM Z12.39 ENCOUNTER FOR OT SCREENING FOR MA LIGNANT NEOPLASM OF COMPARISON: None. TECHNIQUE: Standard craniocaudal and mediolateral oblique views of each breast recorded using digita l acquisition. Additional "push-back" craniocaudal and mediolateral oblique images acquired. LIMITATIONS: None. FINDINGS: IMPLANTS: Bilateral subpectoral implants. Findings present which are benign by mammographic criteria. No suspicious masses, calcifications or architectural distortion. Read with the assistance of CAD. .[facility] - R2 Cenova Version 1.3 .[facility] - R2 Cenova Version 1.3 .[facility] - R2 Cenova Version 2.4 .[facility] [place] R2 Cenova Version 2.4 .[facility] - R2 Binder[employer] Worker Version 9.2 Benign mammographic findings may include one or more of the following: Smooth masses, popcorn/rim/co arse calcifications, asymmetries, post-procedure changes, and lesions with long-standing stability. IMPRESSION: BENIGN MAMMOGRAPHIC FINDINGS. BIRADS 2 BREAST DENSITY: b. There are scattered areas of fibroglandular density. BIRAD: 2 BENIGN FINDING(S) RECOMMENDATION: ROUTINE SCREENING COMMENT: The patient has been notified of the results by letter per SA requirements. Additional no tification policies are in place for contacting patient with suspicious or incomplete findings. Quality ID #[id number]: The [employer] recommends an annual screening mammogram for women aged 40 years or over. This facility utilizes a reminder system to ensure that all patients receive reminder letters, and/or direct phone calls for appointments. This includes reminders for routine scr eening mammograms, diagnostic mammograms, or other Breast Imaging Interventions when appropriate. Th is patient will be placed in the appropriate reminder system. The [employer] (ACR) has developed recommendations for screening MRI of the breast s in certain patient populations, to be used in conjunction with mammography. Breast MRI surveillanc e may be appropriate for women with more than 20% lifetime risk of developing breast cancer as deter mined by genetic testing, significant family history of the disease, or history of mantle radiation f or Hodgkins Disease. ACR Practice Guidelines 2008. TECHNICAL DOCUMENTATION: FINDING NUMBER: (1) ASSESSMENT: (1) JOB ID: [id number] [employer]- All Rights Reserved Reading location - IP/workstation name: [email or web address]
== END ==
LOC: WI 11:22
PROVIDERS: ATTEND Nurse Practitioner Family
DX: Z12.31 Encounter for screening mammogram for malignant neoplasm of breast (principal); Z98.82 Breast implant status
CPT/HCPCS: 77067

== ENCOUNTER 2018-03-08 14:36 | Emergency (ER) | payer BC ==
--- NOTE | 2018-03-08 15:21 | ER Document Report ---
HPI - HPI Patient complains to provider of: medication adjustment Time Seen by Provider: 03/08/18 15:09 Onset: This morning Quality of pain: Achy Pain Level: 3 Context: Patient presents to emergency department with complaints of cellulitis to her left anterior arm and request for medication change. Patient reports on she received her flu vaccine and pneumonia injection. Patient reports that she noticed the area getting red with a little bit of warmth and she also noticed swelling to the anterior clavicle left side neck area. She went to her primary care provider today and was told that she had cellulitis. He prescribed her Septra. Patient reports she went home took the medication and then realized she was allergic to medicate Septra. She took benadryl. She attempted to contact her primary care provider again but was unsuccessful. The swelling to her clavicle area is decreased. The erythema to her arm has remained the same. She reports that she does not remember what happens when she takes sulfa but she has been told she is allergic to it. She also is allergic to Flexeril where she says her throat swells up and she gets hives. Denies fever nausea vomiting diarrhea. Denies chest pain shortness of breath. Patient speaking in clear sentences with no shortness of breath. 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 Renal/ Medical History: Denies: Hx Peritoneal Dialysis GI Medical History: Reports: Hx Diverticulitis, Hx Irritable Bowel Traumatic Medical History: Reports: Hx Fractures - With Past Surgical History: Reports: Hx Appendectomy, Hx Breast Surgery - augmentation, Hx Section - x1, Hx Gynecologic Surgery - ovarian cyst, Hx Hysterectomy, Hx Nose Surgery, Hx Orthopedic Surgery - back, left knee, - Immunizations Immunizations up to date: Yes Hx Diphtheria, Pertussis, Tetanus Vaccination: Yes - unknown Vertical Provider Document - CONSTITUTIONAL Agree With Documented VS: Yes Exam Limitations: No Limitations General Appearance: WD/WN, No Apparent Distress - INFECTION CONTROL TRAVEL OUTSIDE OF THE [place] IN LAST 30 DAYS: No - HEENT HEENT: Atraumatic, Normocephalic. negative: Pharyngeal Exudate, Pharyngeal Tenderness, Pharyngeal Erythema - NECK Neck: Normal Inspection - no vertebral tenderness, Supple, Other - slight swelling to left clavicle area, soft, no pustule, no warmth- patient reports area decreased since yesterday. negative: Lymphadenopathy-Left, Lymphadenopathy -Right - RESPIRATORY Respiratory: Breath Sounds Normal, No Respiratory Distress - CARDIOVASCULAR Cardiovascular: Regular Rate - MUSCULOSKELETAL/EXTREMETIES Musculoskeletal/Extremeties: MAEW, FROM, Tender - Left anterior arm tender to palpation area of redness noted with warmth slight swelling where patient had her pneumonia injection and flu vaccine. Area circled with surgical marker. - NEURO Level of Consciousness: Awake, Alert, Appropriate Motor/Sensory: No Motor Deficit - DERM Integumentary: Warm, Dry Adult Front & Back Diagram: 1 - erythema, warmth, slight swelling, no pustules Course - Re-evaluation Re-evalutation: 03/08/18 15:26 Patient instructed on new medication keflex. Instructed on Benadryl /ice. Injection area circled on her arm. Patient was instructed to monitor the site and return for concerns larger area erythema and of increased pain patient instructed to follow-up with her primary care provider Saturday as directed. Verbalized understanding Dictation of this chart was performed using voice recognition software; therefore, there may be some unintended grammatical errors. - Vital Signs Vital signs: Temp Pulse Resp BP Pulse Ox 98.4 F 98 18 123/74 96 03/08/18 14:48 03/08/18 14:48 03/08/18 14:48 03/08/18 14:48 03/08/18 14:48 Discharge - Discharge Clinical Impression: Encounter for medication adjustment, Left arm cellulitis Condition: Stable Disposition: HOME, SELF-CARE Instructions: Cellulitis ([facility]), Cephalexin ([facility]), Use of Diphenhydramine Additional Instructions: *You have been treated for medication adjustment, cellulitis *Take medication as prescribed *Monitor the site for signs of increasing infection such as increasing pain, redness, swelling, warmth *Follow up with your primary care provider Saturday as directed *Return to ED for signs of increasing infection, worsening condition, changes, needs Prescriptions: Cephalexin Monohydrate [Keflex 500 mg Capsule] 500 mg PO QID #20 capsule Referrals: KEVIN CHRISTIE CRNP [Primary Care Provider] - 03/10/18
[2018-03-08 15:45] VITALS: BP 126/74
== END 2018-03-08 15:50 | disposition home or self-care (01) ==
LOC: ER 14:36
DX: L03.114 Cellulitis of left upper limb (principal); F17.210 Nicotine dependence, cigarettes, uncomplicated; Z90.710 Acquired absence of both cervix and uterus
CPT/HCPCS: 99283

== ENCOUNTER 2018-03-09 13:41 | Emergency (ER) | payer BC ==
[2018-03-09 13:49] VITALS: BP 120/75
[2018-03-09] MEDS ORDERED: DEXAMETHASONE SOD PHOS INJ 10 MG/1 ML VIAL IV ONE (14:37)
--- NOTE | 2018-03-09 14:43 | ER Document Report ---
ED Extremity Problem, Upper - General Chief Complaint: Arm Problem Stated Complaint: REVISIT/LEFT ARM PAIN/SWELLING Time Seen by Provider: 03/09/18 14:24 Mode of Arrival: Ambulatory Information source: Patient, Relative Notes: Patient is a 57-year-old female returns to the emergency room from yesterday when she was seen for a cellulitis of her left upper extremity. Patient states she was seen 2-3 days ago by her primary care physician put on Bactrim got home realize she was allergic to it and came back here yesterday was seen by physician and placed on Keflex. Patient has had a total of 3-4 doses of Keflex and she is back today because the area in question along the left upper extremity has gone outside the lines that were drawn by about a quarter to half inch in some spots. Other than that patient has no major complaints other than she wants me to give her a shot that will clear it up today because she is going up to [place] tomorrow for Thanksgiving and does not want it on her skin. She denies any shortness of breath any other areas of pain or discomfort. She does state that the antibiotic is given her a queasy stomach. Patient is pretty much demanding that we fix it and make it right today. TRAVEL OUTSIDE OF THE [place] IN LAST 30 DAYS: No - HPI Patient complains to provider of: Swelling, Left, Arm Onset: Other - 2-3 days Recent injury: No Where: Other - Unknown but believed to be secondary to injection site from flu shot Quality of pain: Achy Severity of pain: Mild Pain Level: 1 Arm and Shoulder (Left): 1 - Area of discomfort Associated symptoms: Nausea Exacerbated by: Movement Relieved by: Rest Similar symptoms previously: Yes Recently seen / treated by doctor: Yes - Related Data Allergies/Adverse Reactions: cyclobenzaprine HCl [From Flexeril] Allergy (Unknown, Verified 03/09/18 13:42) Sulfa (Sulfonamide Antibiotics) Allergy (Verified 03/09/18 13:42) Past Medical History - General Information source: Patient, Relative - Social History Smoking Status: Current Every Day Smoker Cigarette use (# per day): Yes - 1 pack/day Chew tobacco use (# tins/day): No Smoking Education Provided: Yes Frequency of alcohol use: None Drug Abuse: None Lives with: Family Family History: Reviewed & Not Pertinent Pulmonary Medical History: 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 Renal/ Medical History: Denies: Hx Peritoneal Dialysis GI Medical History: Reports: Hx Diverticulitis, Hx Irritable Bowel Traumatic Medical History: Reports: Hx Fractures - With Past Surgical History: Reports: Hx Appendectomy, Hx Breast Surgery - augmentation, Hx Section - x1, Hx Gynecologic Surgery - ovarian cyst, Hx Hysterectomy, Hx Nose Surgery, Hx Orthopedic Surgery - back, left knee, - Immunizations Immunizations up to date: Yes Hx Diphtheria, Pertussis, Tetanus Vaccination: Yes - unknown Review of Systems - Review of Systems Constitutional: No symptoms reported EENT: No symptoms reported Cardiovascular: No symptoms reported Respiratory: No symptoms reported Gastrointestinal: No symptoms reported Genitourinary: No symptoms reported Female Genitourinary: No symptoms reported Musculoskeletal: No symptoms reported Skin: See HPI, Change in color Hematologic/Lymphatic: No symptoms reported Neurological/Psychological: No symptoms reported -: Yes All other systems reviewed and negative Physical Exam - Vital signs Vitals: Temp Pulse Resp BP Pulse Ox 98.5 F 93 16 120/75 96 03/09/18 13:47 03/09/18 13:47 03/09/18 13:47 03/09/18 13:47 03/09/18 13:47 Interpretation: Normal - Notes Notes: PHYSICAL EXAMINATION: GENERAL: Well-appearing, well-nourished and in no acute distress. Agitated and upset because area is not completely healed. HEAD: Atraumatic, normocephalic. EYES: Pupils equal round and reactive to light, extraocular movements intact, conjunctiva are normal. ENT: Nares patent, oropharynx clear without exudates. Moist mucous membranes. NECK: Normal range of motion, supple without lymphadenopathy LUNGS: Breath sounds clear to auscultation bilaterally and equal. No wheezes rales or rhonchi. HEART: Regular rate and rhythm without murmur Female : deferred Musculoskeletal: Normal range of motion, no pitting or edema. No cyanosis. NEUROLOGICAL: Cranial nerves grossly intact. Normal speech, normal gait. Normal sensory, motor exams PSYCH: Normal mood, normal affect. SKIN: Area of concern is patient's left upper arm. The area has expanded outside of its original markings from the pen yesterday may be 1/4 inch to half inch in some spots. But no other spots it has receded. there does not appear to be any major advancement of the cellulitis as compared to what I seen on patient's arm and what I read in the notes. Course - Re-evaluation Re-evalutation: 03/09/18 14:40 I have informed patient that it takes time for the antibiotics to work. She is only taken 3 or 4 tablets of the Keflex and expects the reaction to be gone. It is extended outside the marked lines by about 1/4 inch to half inch in some areas and which is most likely normal progression until the antibiotics can take effect. Patient is demanding and wants to go on now. She does not understand that it will take time that there is no magic shot but we will give her a shot of some steroids to hopefully will help reduce the inflammation and possibly aid in the regression of the cellulitis. 03/09/18 21:56 Again restated the area in question has limited expansion. I have tried again to inform patient that it takes time for the antibiotics to get in the system. She was on 1 and stopped it and going on another one is only had 3-4 pills and has not enough time to get to this skinned area or the dermis of the skin it takes time to get there. Given the fact that it is taking time I offered patient the option to have a second antibiotic on board since it was not advancing as fast as she thought it should be and I felt that possibly needed more coverage. I did place her on clindamycin more of a rubber trimmer dose 3 times a day instead of 4 times a day. I have given her something for nausea as well. We have had this discussion and I have told her there is no magic want for me to give you to clear the cellulitis up. It takes time. Also informed her that there is no antibiotic that is guaranteed not to cause an upset stomach that any of them can hurt because a discomfort and upset stomach on any person any given time. Just because it does not bother you today does not meet will not bother you tomorrow. I have tried to explain this to her and her but they both are kind of just want to get the airplane flight tomorrow and forget about the skin infection. I believe the patient with the steroid shot should get a little bit more relief with the inflammation area of the presentation. - Vital Signs Vital signs: Temp Pulse Resp BP Pulse Ox 98.5 F 93 16 120/75 96 03/09/18 13:47 03/09/18 13:47 03/09/18 13:47 03/09/18 13:47 03/09/18 13:47 Discharge - Discharge Clinical Impression: Cellulitis Qualifiers: Site of cellulitis: extremity Site of cellulitis of extremity: upper extremity Laterality: left Qualified Code(s): L03.114 - Cellulitis of left upper limb Condition: Stable Disposition: HOME, SELF-CARE Instructions: Cellulitis ([facility]) Additional Instructions: As we discussed it takes antibiotics time to get into the system before the infection on the skin can start to react and start to fade away. Since you have been on only 3 or 4 pills of the Keflex at this time and its expanded outside the lines we are going to add on some clindamycin. We will go with a light dose of clindamycin but it can also upset her stomach. There is no guarantee on any antibiotic for any person that it will not make her stomach upset. I am also going to write you for 2 Diflucan pills 1 you take the day you get it in the next when you take prison through your antibiotics. As we discussed you will be also given something for nausea which can also make you sleepy. Should you have any concerns or problems return to ER for recheck. Prescriptions: Clindamycin HCl 300 mg PO TID #21 capsule Fluconazole [Diflucan] 150 mg PO ASDIR #2 tablet Promethazine HCl [Phenergan 25 mg Tablet] 1 tab PO Q6H PRN #15 tablet PRN Reason:
[2018-03-09] MEDS ORDERED: DEXAMETHASONE SOD PHOS INJ 10 MG/1 ML VIAL IM ONE (14:47)
== END 2018-03-09 14:50 | disposition home or self-care (01) ==
LOC: ER 13:41
DX: L03.114 Cellulitis of left upper limb (principal); M79.602 Pain in left arm; M79.89 Other specified soft tissue disorders; J43.9 Emphysema, unspecified; F17.210 Nicotine dependence, cigarettes, uncomplicated
CPT/HCPCS: 99283; 96372; J1100

== ENCOUNTER → 2018-09-24 | Outpatient (CLI) | payer OTHER ==
--- NOTE | 2018-09-29 10:51 | Pulmonary Function Test ---
Pulmonary Function Test Date of Procedure:: 09/29/18 INDICATION:: Dyspnea Referring Provider: Dr. Elvira Herndon Inventory Checker: Melisa Fisher, MALLET CUTTER, [employer] - Report Spirometry: Spirometry: pre-FVC: 3.28 L 118% pre-FEV:1 2.13 L 93% pre-FEV1/FVC % 65 predicted 84 diq-SEI41-66% 1.14 L 45% Impression: Moderate obstructive ventilatory defect
== END ==
LOC: RT 09:55
DX: J43.9 Emphysema, unspecified (principal)
CPT/HCPCS: 94010

== ENCOUNTER → 2019-06-04 | Outpatient (CLI) | payer BC ==
--- NOTE | 2019-06-04 14:47 | WOMENS IMAGING REPORT ---
EXAM DESCRIPTION: 3D SCREENING MAMMO BILAT COMPLETED DATE/TIME: 06/04/2019 1:35 pm REASON FOR STUDY: Z12.39 ENCOUNTER FOR SCREENING MAMMOGRAM FOR MALIGNANT NEOPLASM OF BREAST Z13.820 ENCOUNTER FOR SCREENING FOR OSTEOPOROSIS Z12.31 ENCNTR SCREEN MAMMOGRAM FOR MALIGNANT NEOPLASM OF B RE COMPARISON: 02/18/2018. EXAM PARAMETERS: Standard craniocaudal and mediolateral oblique views of each breast recorded using digital acquisition and breast tomosynthesis. Additional "push-back craniocaudal and mediolateral ob lique images acquired. Read with the assistance of CAD. .[facility] - R2 Aquac[employer]urist Version 9.2 LIMITATIONS: None. FINDINGS: IMPLANTS: Bilateral subpectoral implants. Findings present which are benign by mammographic criteria. No suspicious masses, calcifications or a rchitectural distortion. Benign mammographic findings may include one or more of the following: Smooth masses, popcorn/rim/co arse calcifications, asymmetries, post-procedure changes, and lesions with long-standing stability. IMPRESSION: BENIGN MAMMOGRAPHIC FINDINGS. BIRADS 2 BREAST DENSITY: b. There are scattered areas of fibroglandular density. BIRAD: ASSESSMENT: 2 BENIGN FINDING(S) RECOMMENDATION: ROUTINE SCREENING COMMENT: The patient has been notified of the results by letter per SA requirements. Additional no tification policies are in place for contacting patient with suspicious or incomplete findings. Quality ID #[id number]: The [employer] recommends an annual screening mammogram for women aged 40 years or over. This facility utilizes a reminder system to ensure that all patients receive reminder letters, and/or direct phone calls for appointments. This includes reminders for routine scr eening mammograms, diagnostic mammograms, or other Breast Imaging Interventions when appropriate. Th is patient will be placed in the appropriate reminder system. TECHNICAL DOCUMENTATION: FINDING NUMBER: (1) ASSESSMENT: (1) JOB ID: [id number] 2010 [employer]- All Rights Reserved Reading location - IP/workstation name: [email or web address]
--- NOTE | 2019-06-04 14:48 | WOMENS IMAGING REPORT ---
EXAM DESCRIPTION: BONE DENSITY HIP/SPINE COMPLETED DATE/TIME: 06/04/2019 1:35 pm REASON FOR STUDY: Z13.820 ENCOUNTER FOR SCREENING FOR OSTEOPOROSIS Z13.820 ENCOUNTER FOR SCREENING FOR OSTEOPOROSIS Z12.31 ENCNTR SCREEN MAMMOGRAM FOR MALIGNANT NEOPLASM OF BRIANNE COMPARISON: None. TECHNIQUE: Dual-Energy X-ray Absorptiometry (DEXA) of the AP Spine and Hip. LIMITATIONS: None. FINDINGS: LUMBAR SPINE: The bone mineral density (BMD) measured from L1-L4 in the AP projection correlates with a T-score of -0.8, which is normal as defined by the World Health Organization. BMD Change vs Baseline: N/A HIP: The bone mineral density (BMD) measured in the left hip correlates with a T-score of -0.4 in the femo ral neck, which is normal as defined by the World Health Organization. BMD Change vs Baseline: N/A 10 year Fracture Risk Assessment: Major Osteoporotic Fracture: Not available. Hip Fracture: Not available. IMPRESSION: 1. LUMBAR SPINE WHO CLASSIFICATION: Normal 2. HIP WHO CLASSIFICATION: Normal OVERALL ASSESSMENT: WHO CLASSIFICATION: Normal COMMENT: The World Health Organization defines low BMD as follows: T-score: Normal: Greater than -1.0 Osteopenia: Between -1.0 and -2.5 Osteoporosis: Less than -2.5 without fractures Established osteoporosis: Less than -2.5 with fractures In general, you may wish to consider: Diagnosis Treatment Follow-up DEXA Normal BMD Prevention 2-3 years Osteopenia Prevention/Therapy 1-2 years Osteoporosis Therapy Yearly TECHNICAL DOCUMENTATION: JOB ID: [id number] 2010 [employer]- All Rights Reserved Reading location - IP/workstation name: [email or web address]
== END ==
LOC: WI 12:15
PROVIDERS: ATTEND Nurse Practitioner Family
DX: Z12.31 Encounter for screening mammogram for malignant neoplasm of breast (principal); Z13.820 Encounter for screening for osteoporosis
CPT/HCPCS: 77063; 77067; 77080

== ENCOUNTER 2020-04-16 17:36 | Emergency (ER) | payer BC ==
[2020-04-16 18:01] VITALS: BP 154/76
[2020-04-16] MEDS ORDERED: AMOXICILLIN TRIHYDRATE 500 MG CAPSULE PO ONE (18:15)
--- NOTE | 2020-04-16 18:16 | ER Document Report ---
HPI - HPI Patient complains to provider of: left ear pain Context: 59-year-old female past medical history significant for hypertension, IBS, chronic back pain presents to the emergency room with sudden onset of left jaw and left ear pain that started earlier today. She denies any trauma or injury. States she was just sitting having a drink when the pain suddenly flared up. Denies any fevers. No recent travel. No recent flying or swimming. No medications for symptoms. Associated Symptoms: None Exacerbated by: Movement Relieved by: Denies Similar symptoms previously: No Recently seen / treated by doctor: No - ROS Systems Reviewed and Negative: Yes All other systems reviewed and negative - CONSTITUTIONAL Constitutional: DENIES: Fever - EENT EENT: REPORTS: Ear Pain. 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 Renal/ Medical History: Denies: Hx Peritoneal Dialysis GI Medical History: Reports: Hx Diverticulitis, Hx Irritable Bowel Psychiatric Medical History: Comment Only: Hx Depression - Anxiety Traumatic Medical History: Reports: Hx Fractures - With Past Surgical History: Reports: Hx Appendectomy, Hx Breast Surgery - augmentation, Hx Section - x1, Hx Gynecologic Surgery - ovarian cyst, Hx Hysterectomy, Hx Nose Surgery, Hx Orthopedic Surgery - back, left knee,, Hx Tonsillectomy - Immunizations Immunizations up to date: Yes Hx Diphtheria, Pertussis, Tetanus Vaccination: Yes - unknown Vertical Provider Document - CONSTITUTIONAL Agree With Documented VS: Yes Exam Limitations: No Limitations General Appearance: Mild Distress - INFECTION CONTROL TRAVEL OUTSIDE OF THE [place] IN LAST 30 DAYS: No - HEENT HEENT: Atraumatic, Normocephalic, PERRLA. negative: Pharyngeal Exudate, Pharyngeal Tenderness, Pharyngeal Erythema, Tympanic Membrane Red, Tympanic Membrane Bulging Notes: Tenderness and swelling noted to the right parotid gland. No preauricular or postauricular lymphadenopathy. Right tympanic membrane intact with no erythema or swelling. Right outer ear canal without erythema or swelling. Able to open and close jaw without difficulty. Nontender of the TMJ joint. - NECK Neck: Normal Inspection, Supple, Thyroid Normal. negative: Lymphadenopathy- Left, Lymphadenopathy-Right - RESPIRATORY Respiratory: Breath Sounds Normal, No Respiratory Distress, Chest Non-Tender - CARDIOVASCULAR Cardiovascular: Regular Rate, Regular Rhythm, No Murmur - NEURO Level of Consciousness: Awake, Alert, Appropriate Motor/Sensory: No Motor Deficit, No Sensory Deficit Course - Re-evaluation Re-evalutation: 04/16/20 18:23 Reviewed diagnosis with patient. She was counseled on warm compresses 20 minutes 3 times a day. Antibiotics as prescribed. First dose given prior to discharge as her pharmacy is closed. She was counseled on the importance of sucking on sour balls 20 minutes 3 times a day. Outpatient follow-up with her primary care physician if not improving in 2 to 3 days. Patient was given strict return to the emergency room guidelines. Return for any new or worsening symptoms. All questions were answered. Patient verbalized understanding and agrees with plan of care. - Vital Signs Vital signs: Temp Pulse Resp BP Pulse Ox 98.2 F 77 18 154/76 H 96 04/16/20 17:56 04/16/20 17:56 04/16/20 17:56 04/16/20 17:56 04/16/20 17:56 - Laboratory Results Critical Laboratory Results Reviewed: No Critical Results - Radiology Results Critical Radiology Results Reviewed: No Critical Results Discharge - Discharge Clinical Impression: Swelling of right parotid gland Condition: Stable Disposition: HOME, SELF-CARE Instructions: Acute Parotid Gland Swelling ([facility]) Additional Instructions: Warm heat 20 minutes 3 times a day. Amoxicillin as prescribed. Try to suck on sour balls 20 minutes 3 times a day. Outpatient follow-up with primary care physician if not improving in 2 to 3 days. Return to the emergency room for any new or worsening symptoms. Prescriptions: Amoxicillin 1 tab PO TID #30 tab Referrals: SOURAV SAM PA-C [Primary Care Provider] - Follow up as needed
== END 2020-04-16 18:29 | disposition home or self-care (01) ==
LOC: ER 17:36
DX: R59.0 Localized enlarged lymph nodes (principal); H92.02 Otalgia, left ear; F17.200 Nicotine dependence, unspecified, uncomplicated
CPT/HCPCS: 99283